=== PATIENT | female | born 1985 | race Caucasian/White ===

== ENCOUNTER 2018-03-02 18:39 | Emergency (ER) | payer SELFPAY ==
[2018-03-02] MEDS ORDERED: NACL 0.9% 1000 ML 1,000 ML IV ONE (18:46)
[2018-03-02 19:03] LABS: Hematocrit 38.7 % (30.3-42.9); Hemoglobin 13.3 gm/dl (10.1-14.3); Mean Corpuscular HGB Conc 34 % (30-34); Mean Corpuscular Hemoglobin 33 pg (28-32); Mean Corpuscular Volume 97 fl (79-97); Platelet Count 138 K/mm3 (140-440); Red Cell Distribution Width 13.2 % (13.2-15.2)
[2018-03-02 19:26] LABS: Alanine Aminotransferase 13 units/L (7-56); Albumin 4.7 g/dL (3.9-5); BUN/Creatinine Ratio 17; Blood Urea Nitrogen 10 mg/dL (7-17); Calcium 9.5 mg/dL (8.4-10.2); Hemolysis Index 5
[2018-03-02 19:57] LABS: Basophils % (Manual) 0 % (0.0-1.8); Eosinophils % (Manual) 0 % (0.0-4.3); Total Cells Counted 100
[2018-03-02 19:58] LABS: Large Platelets Few; Platelet Estimate Cons; RBC Morphology Normal
--- NOTE | 2018-03-02 20:34 | Emergency Department Report ---
HPI - General Chief Complaint: Abdominal Pain Time Seen by Provider: 03/02/18 20:22 - HPI HPI: Room 26 The patient is a 32-year-old female presenting with chief complaint of vaginal discharge and normal cramping. The patient states last week she noticed some dark yellow vaginal discharge but then it stopped. The patient states for the past week she's had intermittent lower abdominal cramping in addition to the return of dark yellow vaginal discharge. Patient denies dysuria or hematuria. Patient denies fever. The patient currently gives her discomfort as score of 6/ 10 Location: Pelvis Duration: [See above] Quality: Cramping Severity:6/10 Modifying factors: [see above] Context: [see above] Mode of transportation: The patient drove herself to the emergency department and there are no visitors present ED Past Medical Hx - Past Medical History Previous Medical History?: No - Surgical History Past Surgical History?: No - Family History Family history: no significant - Social History Smoking Status: Current Every Day Smoker (1/3 pack per day) Substance Use Type: Marijuana - Medications Home Medications: Home Medications Medication Instructions Recorded Confirmed Last Taken Type Ibuprofen [Motrin 800 MG tab] 800 mg PO Q8HR PRN #20 tablet 03/02/18 Unknown Rx Tramadol HCl [Ultram] 50 mg PO Q4-6H PRN #10 tablet 03/02/18 Unknown Rx ED Review of Systems ROS: Stated complaint: ADB PAIN Other details as noted in HPI Constitutional: denies: fever Eyes: denies: eye pain ENT: denies: throat pain Respiratory: no symptoms reported Cardiovascular: denies: chest pain Endocrine: no symptoms reported Gastrointestinal: abdominal pain Genitourinary: discharge. denies: hematuria Musculoskeletal: denies: back pain Neurological: denies: headache Physical Exam - Physical Exam Vital Signs: Vital Signs 03/02/18 18:43 Temperature 98.9 F Pulse Rate 97 H Respiratory 18 Rate Blood Pressure 118/81 O2 Sat by Pulse 99 Oximetry Physical Exam: GENERAL: The patient is well-developed well-nourished female lying on stretcher not appearing to be in acute distress. [] HEENT: Normocephalic. Atraumatic. Extraocular motions are intact. Patient has moist mucous membranes. NECK: Supple. Trachea midline CHEST/LUNGS: Clear to auscultation. There is no respiratory distress noted. HEART/CARDIOVASCULAR: Regular. There is no tachycardia. There is no gallop rub or murmur. ABDOMEN: Abdomen is soft, with mild discomfort to palpation along the lower abdomen. No rebound or guarding. Patient has normal bowel sounds. There is no abdominal distention. SKIN: There is no rash. There is no edema. There is no diaphoresis. NEURO: The patient is awake, alert, and oriented. The patient is cooperative. The patient has normal speech MUSCULOSKELETAL: There is no evidence of acute injury. PELVIC: Small amount of white discharge present in vault. ED Course Vital Signs 03/02/18 18:43 Temperature 98.9 F Pulse Rate 97 H Respiratory 18 Rate Blood Pressure 118/81 O2 Sat by Pulse 99 Oximetry ED Medical Decision Making - Lab Data Result diagrams: 03/02/18 18:54 03/02/18 18:54 Laboratory Tests 03/02/18 03/02/18 03/02/18 18:54 18:54 18:54 WBC 4.5 RBC 4.00 Hgb 13.3 Hct 38.7 MCV 97 MCH 33 H MCHC 34 RDW 13.2 Plt Count 138 L Greer % (Auto) Network Systems Consultant Eos % (Auto) Network Systems Consultant Add Manual Diff Complete Total Counted 100 Seg Neutrophils % Network Systems Consultant Seg Neuts % (Manual) 55.0 Band Neutrophils % 0 Lymphocytes % (Manual) 39.0 H Reactive Lymphs % (Man) 0 Monocytes % (Manual) 6.0 Eosinophils % (Manual) 0 Basophils % (Manual) 0 Metamyelocytes % 0 Myelocytes % 0 Promyelocytes % 0 Blast Cells % 0 Nucleated RBC % Not Reportable Seg Neutrophils # Man 2.5 Band Neutrophils # 0.0 Lymphocytes # (Manual) 1.8 Abs React Lymphs (Man) 0.0 Monocytes # (Manual) 0.3 Eosinophils # (Manual) 0.0 Basophils # (Manual) 0.0 Metamyelocytes # 0.0 Myelocytes # 0.0 Promyelocytes # 0.0 Blast Cells # 0.0 WBC Morphology Not Reportable Hypersegmented Neuts Not Reportable Hyposegmented Neuts Not Reportable Hypogranular Neuts Not Reportable Smudge Cells Not Reportable Toxic Granulation Not Reportable Toxic Vacuolation Not Reportable Dohle Bodies Not Reportable Pelger-Huet Anomaly Not Reportable Wolf Rods Not Reportable Platelet Estimate Cons Clumped Platelets Not Reportable Plt Clumps, EDTA Not Reportable Large Platelets Few Giant Platelets Not Reportable Platelet Satelliting Not Reportable Plt Morphology Comment Not Reportable RBC Morphology Normal Dimorphic RBCs Not Reportable Polychromasia Not Reportable Hypochromasia Not Reportable Poikilocytosis Not Reportable Anisocytosis Not Reportable Microcytosis Not Reportable Macrocytosis Not Reportable Spherocytes Not Reportable Pappenheimer Bodies Not Reportable Sickle Cells Not Reportable Target Cells Not Reportable Tear Drop Cells Not Reportable Ovalocytes Not Reportable Helmet Cells Not Reportable Moe-[place] Bodies Not Reportable [place] Rings Not Reportable [place] Cells Not Reportable Bite Cells Not Reportable Crenated Cell Not Reportable Elliptocytes Not Reportable Acanthocytes (Spur) Not Reportable Rouleaux Not Reportable Hemoglobin C Crystals Not Reportable Schistocytes Not Reportable Malaria parasites Not Reportable Dax Bodies Not Reportable Hem Pathologist Commnt No Sodium 140 Potassium 3.5 L Chloride 103.8 Carbon Dioxide 23 Anion Gap 17 BUN 10 Creatinine 0.6 L Estimated GFR > 60 BUN/Creatinine Ratio 17 Glucose 89 Calcium 9.5 Total Bilirubin 0.60 AST 16 ALT 13 Alkaline Phosphatase 55 Total Protein 7.2 Albumin 4.7 Albumin/Globulin Ratio 1.9 HCG, Qual Negative Urine Color Urine Turbidity Urine pH Ur Specific [place] Urine Protein Urine Glucose (UA) Urine Ketones Urine Blood Urine Nitrite Urine Bilirubin Urine Urobilinogen Ur Leukocyte Esterase Urine WBC (Auto) Urine RBC (Auto) U Epithel Cells (Auto) Urine Mucus 03/02/18 19:41 WBC RBC Hgb Hct MCV MCH MCHC RDW Plt Count [place] % (Auto) Eos % (Auto) Add Manual Diff Total Counted Seg Neutrophils % Seg Neuts % (Manual) Band Neutrophils % Lymphocytes % (Manual) Reactive Lymphs % (Man) Monocytes % (Manual) Eosinophils % (Manual) Basophils % (Manual) Metamyelocytes % Myelocytes % Promyelocytes % Blast Cells % Nucleated RBC % Seg Neutrophils # Man Band Neutrophils # Lymphocytes # (Manual) Abs React Lymphs (Man) Monocytes # (Manual) Eosinophils # (Manual) Basophils # (Manual) Metamyelocytes # Myelocytes # Promyelocytes # Blast Cells # WBC Morphology Hypersegmented Neuts Hyposegmented Neuts Hypogranular Neuts Smudge Cells Toxic Granulation Toxic Vacuolation Dohle Bodies Pelger-Huet Anomaly Wolf Rods Platelet Estimate Clumped Platelets Plt Clumps, EDTA Large Platelets Giant Platelets Platelet Satelliting Plt Morphology Comment RBC Morphology Dimorphic RBCs Polychromasia Hypochromasia Poikilocytosis Anisocytosis Microcytosis Macrocytosis Spherocytes Pappenheimer Bodies Sickle Cells Target Cells Tear Drop Cells Ovalocytes Helmet Cells Moe-Crossgate Bodies [place] Rings Javier Cells Bite Cells Crenated Cell Elliptocytes Acanthocytes (Spur) Rouleaux Hemoglobin C Crystals Schistocytes Malaria parasites Dax Bodies Hem Pathologist Commnt Sodium Potassium Chloride Carbon Dioxide Anion Gap BUN Creatinine Estimated GFR BUN/Creatinine Ratio Glucose Calcium Total Bilirubin AST ALT Alkaline Phosphatase Total Protein Albumin Albumin/Globulin Ratio HCG, Qual Urine Color Yellow Urine Turbidity Slightly-cloudy Urine pH 6.0 Ur Specific [place] 1.013 Urine Protein <15 mg/dl Urine Glucose (UA) Neg Urine Ketones Neg Urine Blood Neg Urine Nitrite Neg Urine Bilirubin Neg Urine Urobilinogen < 2.0 Ur Leukocyte Esterase Neg Urine WBC (Auto) 2.0 Urine RBC (Auto) 1.0 U Epithel Cells (Auto) 5.0 Urine Mucus Few - Differential Diagnosis vaginitis, bacterial vaginosis, urethritis, UTI Critical care attestation.: If time is entered above; I have spent that time in minutes in the direct care of this critically ill patient, excluding procedure time. ED Disposition Clinical Impression: Vaginal discharge Disposition: TO HOME OR SELFCARE Is pt being admited?: No Does the pt Need Aspirin: No Condition: Stable Instructions: Abdominal Pain (ED) Additional Instructions: Return to the emergency department immediately should you develop worsening symptoms, fever, inability to tolerate food or liquid or any other concerns. Prescriptions: Ibuprofen [Motrin 800 MG tab] 800 mg PO Q8HR PRN #20 tablet PRN Reason: Pain, Moderate (4-6) Tramadol HCl [Ultram] 50 mg PO Q4-6H PRN #10 tablet PRN Reason: Pain , Severe (7-10) Referrals: [facility] [Outside] - 3-5 Days Time of Disposition: 22:18
[2018-03-02] MEDS ORDERED: MOTRIN PO ONE (20:36)
[2018-03-02] MEDS ORDERED: ROCEPHIN IM ONE (21:05)
[2018-03-02] MEDS ORDERED: ZITHROMAX PO ONE ×2 (21:05→22:00)
[2018-03-02] MEDS ORDERED: XYLOCAINE 1% MPF 5 mL INFILTRATI ONE (21:05)
[2018-03-02 22:06] LABS: Bilirubin,Urine NEG (Negative); Blood,Urine NEG (Negative); Color,Urine Yellow (Yellow); Mucus,Urine FEW /HPF; Protein,Urine <15 mg/dL mg/dL (Negative); Urobilinogen,Urine < 2.0 mg/dL (<2.0)
[2018-03-02 22:35] VITALS: BP 121/85
== END 2018-03-02 22:35 | disposition home or self-care (01) ==
LOC: ED 18:39
DX: N89.8 Other specified noninflammatory disorders of vagina (principal); R10.2 Pelvic and perineal pain; F17.210 Nicotine dependence, cigarettes, uncomplicated; F12.10 Cannabis abuse, uncomplicated
CPT/HCPCS: 36415; 80053; 81001; 84703; 85007; 85025; 87210; 87591; 96372; 99284; J0696

== ENCOUNTER 2019-01-28 03:20 | Emergency (ER) | payer MEDICAID ==
[2019-01-28 03:32] VITALS: BP 126/87
[2019-01-28 04:51] LABS: Basophils % (Auto) 0.5 % (0.0-1.8); Eosinophils % (Auto) 0.8 % (0.0-4.3); Hematocrit 30.8 % (30.3-42.9); Hemoglobin 10.4 gm/dl (10.1-14.3); Lymphocytes # (Auto) 1.4 K/mm3 (1.2-5.4); Lymphocytes % (Auto) 33.2 % (13.4-35.0); Mean Corpuscular HGB Conc 34 % (30-34); Mean Corpuscular Hemoglobin 33 pg (28-32); Mean Corpuscular Volume 98 fl (79-97); Monocytes # (Auto) 0.4 K/mm3 (0.0-0.8); Monocytes % (Auto) 9.5 % (0.0-7.3); Platelet Count 185 K/mm3 (140-440); Red Blood Count 3.15 M/mm3 (3.65-5.03); Red Cell Distribution Width 13.7 % (13.2-15.2)
--- NOTE | 2019-01-28 05:02 | Emergency Department Report ---
ED Female HPI - General Chief complaint: Vaginal Bleeding Stated complaint: HEAVY VAGINAL BLEEDING Time Seen by Provider: 01/28/19 04:49 Source: patient Mode of arrival: Ambulatory Limitations: No Limitations - History of Present Illness Complaint: vaginal bleeding Location: suprapubic Radiation: non-radiating Severity: mild Quality: dull Consistency: constant Improves with: none Worsens with: none Are you Now?: No Associated Symptoms: vaginal bleeding (heavy vaginal bleeding starting this morning with few clots. Denies . no fever). denies: abdominal pain, nausea/vomiting, loss of appetite, hematuria, shortness of breath, syncope, weakness - Related Data Sexually active: Yes Previous Rx's Medication Instructions Recorded Last Taken Type Ibuprofen [Motrin 800 MG tab] 800 mg PO Q8HR PRN #20 tablet 03/02/18 Unknown Rx Tramadol HCl [Ultram] 50 mg PO Q4-6H PRN #10 tablet 03/02/18 Unknown Rx Cephalexin [Keflex] 500 mg PO BID 7 Days #14 capsule 09/28/18 Unknown Rx Ibuprofen [Motrin 600 MG tab] 600 mg PO Q8H #15 tablet 09/28/18 Unknown Rx Chlorhexidine Gluconate [Hibiclens] 5 ml TP BID #240 ml 09/30/18 Unknown Rx Ketorolac [Toradol] 10 mg PO Q6H PRN #10 tablet 01/28/19 Unknown Rx Allergies Allergy/AdvReac Type Severity Reaction Status Date / Time No Known Allergies Allergy Verified 03/02/18 18:43 ED Review of Systems ROS: Stated complaint: HEAVY VAGINAL BLEEDING Other details as noted in HPI Comment: All other systems reviewed and negative ED Past Medical Hx - Past Medical History Previous Medical History?: No - Surgical History Past Surgical History?: No - Social History Smoking Status: Current Every Day Smoker Substance Use Type: Marijuana - Medications Home Medications: Home Medications Medication Instructions Recorded Confirmed Last Taken Type Ibuprofen [Motrin 800 MG tab] 800 mg PO Q8HR PRN #20 tablet 03/02/18 Unknown Rx Tramadol HCl [Ultram] 50 mg PO Q4-6H PRN #10 tablet 03/02/18 Unknown Rx Cephalexin [Keflex] 500 mg PO BID 7 Days #14 capsule 09/28/18 Unknown Rx Ibuprofen [Motrin 600 MG tab] 600 mg PO Q8H #15 tablet 09/28/18 Unknown Rx Chlorhexidine Gluconate [Hibiclens] 5 ml TP BID #240 ml 09/30/18 Unknown Rx Ketorolac [Toradol] 10 mg PO Q6H PRN #10 tablet 01/28/19 Unknown Rx ED Physical Exam - General Limitations: No Limitations General appearance: alert, in no apparent distress - Head Head exam: Present: atraumatic, normocephalic - Eye Eye exam: Present: normal appearance, PERRL Pupils: Present: normal accommodation - ENT ENT exam: Present: normal exam, mucous membranes moist - Neck Neck exam: Present: normal inspection - Respiratory Respiratory exam: Present: normal lung sounds bilaterally. Absent: respiratory distress, wheezes, rales, rhonchi - Cardiovascular Cardiovascular Exam: Present: regular rate, normal rhythm. Absent: systolic murmur, diastolic murmur, rubs, gallop - GI/Abdominal GI/Abdominal exam: Present: soft, normal bowel sounds - External exam: Present: normal external exam Speculum exam: Present: vaginal bleeding Bi-manual exam: Present: uterine tenderness - Extremities Exam Extremities exam: Present: normal inspection - Back Exam Back exam: Present: normal inspection - Neurological Exam Neurological exam: Present: alert, oriented X3, CN II-XII intact - Psychiatric Psychiatric exam: Present: normal affect, normal mood - Skin Skin exam: Present: warm, dry, intact, normal color. Absent: rash ED Course Vital Signs 01/28/19 03:31 Temperature 98.4 F Pulse Rate 83 Respiratory 18 Rate Blood Pressure 126/87 [Left] O2 Sat by Pulse 100 Oximetry ED Medical Decision Making - Lab Data Result diagrams: 01/28/19 04:05 - Radiology Data Radiology results: report reviewed (ultrasound report showed adnexal mass) - Medical Decision Making 33-year-old female with heavy vaginal bleeding near the time of her normal mens es associated with some mild pain white blood cell counts normal labs for the most part normal. Ultrasound does reveal a adnexal tubular structure that could represent/sepsis. Patient is nontoxic. She did about follow-up this cystic/left structure of the abscess with [employer] [employer] [facility]. Pain is minimal, if bleeding continues beyond proximal 5-7 days. Lacerated evaluated for possible medical intervention Critical care attestation.: If time is entered above; I have spent that time in minutes in the direct care of this critically ill patient, excluding procedure time. ED Disposition Clinical Impression: Vaginal bleeding, Pelvic cramping, Adnexal mass, test negative Disposition: TO HOME OR SELFCARE Is pt being admited?: No Does the pt Need Aspirin: No Condition: Stable Instructions: Menstruation (ED) Prescriptions: Ketorolac [Toradol] 10 mg PO Q6H PRN #10 tablet PRN Reason: Pain Referrals: [facility] MD VINNY [Primary Care Provider] - 3-5 Days [facility] [Provider Group] - 3-5 Days
[2019-01-28 05:11] LABS: BUN/Creatinine Ratio 20; Blood Urea Nitrogen 14 mg/dL (7-17); Calcium 8.6 mg/dL (8.4-10.2); Hemolysis Index 11
--- NOTE | 2019-01-28 06:52 | Ultrasound Report ---
ULTRASOUND PELVIS INDICATION: vaginal bleeding and cramping. TECHNIQUE: Transabdominal and Transvaginal. Duplex Color Doppler used: Yes. COMPARISON: None available FINDINGS: Uterus: Present. Size: 12.4 x 5.5 x 6.3 cm. Endometrial complex: Normal measuring 0.8 cm. Mass lesions: None. Additional findings: None. Ovaries: Not clearly seen. Complex tubular structures are seen in the expected locations of the ovari es with internal color flow. Urinary Bladder: No significant abnormality. Free Fluid: Moderate amount. Additional Findings: None. IMPRESSION: 1. Nonvisualization of normal appearing ovaries with complex bilateral adnexal tubular structures lit t could represent tubo-ovarian abscesses. Please correlate with the clinical findings. 2. Moderate amount of free fluid. Signer Name: Nawaf Peres MD Signed: 01/28/2019 6:48 AM Workstation Name: [id number]
== END 2019-01-28 07:44 | disposition home or self-care (01) ==
LOC: ED 03:20
DX: R19.09 Other intra-abdominal and pelvic swelling, mass and lump (principal); R10.2 Pelvic and perineal pain; N93.9 Abnormal uterine and vaginal bleeding, unspecified; F17.200 Nicotine dependence, unspecified, uncomplicated; F12.90 Cannabis use, unspecified, uncomplicated; Z79.899 Other long term (current) drug therapy
CPT/HCPCS: 36415; 76830; 76856; 80048; 84703; 85025; 99284

== ENCOUNTER 2019-02-20 11:08 | Emergency (ER) | payer MEDICAID ==
[2019-02-20 11:15] VITALS: BP 105/63
--- NOTE | 2019-02-20 11:15 | Event Note ---
ED Screening Note ED Screening Note: pt presents with left shoulder pain states that a client fell onto her left shoulder last week states pain worse with movement and lifting her arm never injured before no PMHx no allergies to meds LNMP: january 27 This initial assessment/diagnostic orders/clinical plan/treatment(s) is/are subject to change based on patients health status, clinical progression and re- assessment by fellow clinical providers in the ED. Further treatment and workup at subsequent clinical providers discretion. Patient/guardian urged not to elope from the ED as their condition may be serious if not clinically assessed and managed. Initial orders include: XR of the left shoulder
[2019-02-20 12:24] LABS: HCG Qualitative,Urine Negative (Negative)
--- NOTE | 2019-02-20 13:14 | XRay Report ---
Left shoulder 3 views 1245 INDICATION: Trauma one week ago, left shoulder pain No fractures are seen. No significant arthritic changes are noted. The distal clavicle is mildly elev ated relative to the acromion though this can be a normal variant. Clinical attention to the acromial clavicular joint is suggested however. Signer Name: Gary Lee MD Signed: 02/20/2019 1:09 PM Workstation Name: [id number]
[2019-02-20] MEDS ORDERED: IBUPROFEN PO ONE (14:20)
--- NOTE | 2019-02-20 14:27 | Emergency Department Report ---
ED Upper Extremity Inj HPI - General Chief Complaint: Shoulder Injury Stated Complaint: CHEST PAIN Time Seen by Provider: 02/20/19 11:13 Source: patient Mode of arrival: Ambulatory Limitations: No Limitations - History of Present Illness Initial Comments: This is a 33-year-old female nontoxic, well nourished in appearance, no acute signs of distress presents to the ED with c/o of left shoulder pain x1 week. Patient stated that a client fell on her. Patient denies any other trauma. Patient denies any numbness, tingling, fever, chills, nausea, vomiting, chest pain, shortness of breath, headache, stiff neck. Patient denies any joint swelling or joint redness. Patient denies decreased range of motion. Patient denies any allergies or significant past medical history. MD Complaint: Injury to:: left, shoulder -: week(s) (1) Other Extremity Injury: Shoulder: Left Other Injuries: none Severity scale (0 -10): 8 Improves With: immobilization Worsens With: movement of extremity Associated Symptoms: denies other symptoms. denies: weakness, numbness, neck pain, suspects foreign body, nausea/vomiting, heard/felt popping sensat - Related Data Previous Rx's Medication Instructions Recorded Last Taken Type Ibuprofen [Motrin 800 MG tab] 800 mg PO Q8HR PRN #20 tablet 03/02/18 Unknown Rx Tramadol HCl [Ultram] 50 mg PO Q4-6H PRN #10 tablet 03/02/18 Unknown Rx Cephalexin [Keflex] 500 mg PO BID 7 Days #14 capsule 09/28/18 Unknown Rx Ibuprofen [Motrin 600 MG tab] 600 mg PO Q8H #15 tablet 09/28/18 Unknown Rx Chlorhexidine Gluconate [Hibiclens] 5 ml TP BID #240 ml 09/30/18 Unknown Rx Ketorolac [Toradol] 10 mg PO Q6H PRN #10 tablet 01/28/19 Unknown Rx Acetaminophen/Codeine [Tylenol 1 tab PO Q6H PRN #12 tab 02/20/19 Unknown Rx /Codeine # 3 tab] Ibuprofen [Motrin] 600 mg PO Q8H PRN #20 tablet 02/20/19 Unknown Rx Allergies Allergy/AdvReac Type Severity Reaction Status Date / Time No Known Allergies Allergy Verified 03/02/18 18:43 ED Review of Systems ROS: Stated complaint: CHEST PAIN Other details as noted in HPI Constitutional: denies: chills, fever Eyes: denies: eye pain, eye discharge, vision change ENT: denies: ear pain, throat pain Respiratory: denies: cough, shortness of breath, wheezing Cardiovascular: denies: chest pain, palpitations Endocrine: no symptoms reported Gastrointestinal: denies: abdominal pain, nausea, diarrhea Genitourinary: denies: urgency, dysuria, discharge Musculoskeletal: arthralgia. denies: back pain, joint swelling Skin: denies: rash, lesions Neurological: denies: headache, weakness, paresthesias Psychiatric: denies: anxiety, depression Hematological/Lymphatic: denies: easy bleeding, easy bruising ED Past Medical Hx - Past Medical History Previous Medical History?: No - Surgical History Past Surgical History?: No - Social History Smoking Status: Current Some Day Smoker Substance Use Type: Marijuana - Medications Home Medications: Home Medications Medication Instructions Recorded Confirmed Last Taken Type Ibuprofen [Motrin 800 MG tab] 800 mg PO Q8HR PRN #20 tablet 03/02/18 Unknown Rx Tramadol HCl [Ultram] 50 mg PO Q4-6H PRN #10 tablet 03/02/18 Unknown Rx Cephalexin [Keflex] 500 mg PO BID 7 Days #14 capsule 09/28/18 Unknown Rx Ibuprofen [Motrin 600 MG tab] 600 mg PO Q8H #15 tablet 09/28/18 Unknown Rx Chlorhexidine Gluconate [Hibiclens] 5 ml TP BID #240 ml 09/30/18 Unknown Rx Ketorolac [Toradol] 10 mg PO Q6H PRN #10 tablet 01/28/19 Unknown Rx Acetaminophen/Codeine [Tylenol 1 tab PO Q6H PRN #12 tab 02/20/19 Unknown Rx /Codeine # 3 tab] Ibuprofen [Motrin] 600 mg PO Q8H PRN #20 tablet 02/20/19 Unknown Rx ED Physical Exam - General Limitations: No Limitations General appearance: alert, in no apparent distress - Head Head exam: Present: atraumatic, normocephalic - Neck Neck exam: Present: normal inspection, full ROM. Absent: tenderness, meningismus, lymphadenopathy - Respiratory Respiratory exam: Present: normal lung sounds bilaterally. Absent: respiratory distress, wheezes, rales, rhonchi, stridor, chest wall tenderness, accessory muscle use, decreased breath sounds, prolonged expiratory - Cardiovascular Cardiovascular Exam: Present: regular rate, normal rhythm, normal heart sounds. Absent: bradycardia, tachycardia, irregular rhythm, systolic murmur, diastolic murmur, rubs, gallop - Extremities Exam Extremities exam: Present: normal inspection, full ROM, tenderness, normal capillary refill. Absent: joint swelling, calf tenderness - Expanded Upper Extremity Exam Left General: Present: normal inspection Shoulder Exam: Present: normal inspection, full ROM, tenderness. Absent: swelling, abrasion, laceration, ecchymosis, deformity, crepidus, dislocation, erythema, tenderness over AC joint Upper Arm exam: Present: normal inspection, full ROM. Absent: tenderness, swelling Elbow exam: Present: normal inspection, full ROM. Absent: tenderness, swelling Forearm Wrist exam: Present: normal inspection, full ROM. Absent: tenderness, swelling Hand Wrist exam: Present: normal inspection, full ROM. Absent: tenderness, swelling Vascular: Present: vascular compromise, normal capillary refill - Back Exam Back exam: Present: normal inspection, full ROM. Absent: tenderness, CVA tenderness (R), CVA tenderness (L), muscle spasm, paraspinal tenderness, vertebral tenderness, rash noted - Neurological Exam Neurological exam: Present: alert, oriented X3, normal gait - Psychiatric Psychiatric exam: Present: normal affect, normal mood - Skin Skin exam: Present: warm, dry, intact, normal color. Absent: rash ED Course Vital Signs 02/20/19 11:13 Temperature 98.6 F Pulse Rate 89 Respiratory 16 Rate Blood Pressure 105/63 [Left] O2 Sat by Pulse 98 Oximetry - Reevaluation(s) Reevaluation #1: 02/20/19 14:27 Patient is speaking in full sentences with no signs of distress noted. ED Medical Decision Making - Medical Decision Making This is a 33-year-old female that presents with left shoulder strain. Patient is stable and was examined by me. I referred patient to an orthopedic doctor for further evaluation for possible MRI. X-ray has been obtained and dictated by the radiologist. Patient is notified of the x-ray report with noted by the patient. Patient does have normal gait with no tenderness and no joint swelling. No ecchymosis. no joint redness or swelling. Not warm to touch. No signs of cellulites present. Patient received a shoulder sling. Patient was instructed to RICE therapy. Patient received Motrin for pain. Patient is discharged with Motrin. At time of discharge, the patient does not seem toxic or ill in appearance. No acute signs of distress noted. Patient agrees to discharge treatment plan of care. No further questions noted by the patient. Critical care attestation.: If time is entered above; I have spent that time in minutes in the direct care of this critically ill patient, excluding procedure time. ED Disposition Clinical Impression: Left shoulder strain Qualifiers: Encounter type: initial encounter Qualified Code(s): S46.912A - Strain of unspecified muscle, fascia and tendon at shoulder and upper arm level, left arm, initial encounter Disposition: TO HOME OR SELFCARE Is pt being admited?: No Does the pt Need Aspirin: No Condition: Stable Instructions: RICE Therapy (ED), Acetaminophen/Codeine (By mouth) Additional Instructions: Follow-up with a orthopedic doctor in 3-5 days or if symptoms worsen and continue return to emergency room as soon as possible. Prescriptions: Ibuprofen [Motrin] 600 mg PO Q8H PRN #20 tablet PRN Reason: Pain Acetaminophen/Codeine [Tylenol /Codeine # 3 tab] 1 tab PO Q6H PRN #12 tab PRN Reason: Pain , Severe (7-10) Referrals: JULITA DODGE MD [Primary Care Provider] - 3-5 Days PRIMARY MD RICHA [Referring] - 3-5 Days VIRA ALDRICH MD [Staff Physician] - 3-[address] [facility] [Outside] - 3-5 Days [facility] [Outside] - 3-5 Days Forms: Work/School Release Form(ED)
== END 2019-02-20 14:39 | disposition home or self-care (01) ==
LOC: ED 11:08
DX: S46.912A Strain of unspecified muscle, fascia and tendon at shoulder and upper arm level, left arm, initial encounter (principal); F17.200 Nicotine dependence, unspecified, uncomplicated; F12.90 Cannabis use, unspecified, uncomplicated; Z79.899 Other long term (current) drug therapy; W51.XXXA Accidental striking against or bumped into by another person, initial encounter; Y93.89 Activity, other specified; Y92.89 Other specified places as the place of occurrence of the external cause; Y99.8 Other external cause status
CPT/HCPCS: 81025; 99284

== ENCOUNTER 2020-06-08 21:47 | Emergency (ER) | payer MEDICAID ==
[2020-06-08 22:35] VITALS: BP 112/66
[2020-06-08] MEDS ORDERED: NEOMY 3.5 MG/BACIT 400 UNITS/POLY B 5000 UNITS/GM OINT PACKET TP STA (22:35)
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
== END 2020-06-08 23:22 | disposition left against medical advice (07) ==
LOC: ED 21:47
DX: M79.605 Pain in left leg (principal); Z53.21 Procedure and treatment not carried out due to patient leaving prior to being seen by health care provider

== ENCOUNTER 2021-01-13 16:33 | Outpatient (CLI) | payer MEDICAID ==
[2021-01-13 19:32] VITALS: BP 110/57
== END 2021-01-13 19:55 | disposition home or self-care (01) ==
LOC: TRG 16:33 → APU 16:35 → TRG 19:55
DX: Z34.92 Encounter for supervision of normal pregnancy, unspecified, second trimester (principal); Z3A.21 21 weeks gestation of pregnancy
CPT/HCPCS: 59025

== ENCOUNTER 2021-03-20 19:43 | Emergency (ER) | payer OTHER, MEDICAID ==
[2021-03-20 20:42] VITALS: BP 103/52
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
== END 2021-03-21 02:23 | disposition home or self-care (01) ==
LOC: ED 19:43
DX: S63.501A Unspecified sprain of right wrist, initial encounter (principal); S20.219A Contusion of unspecified front wall of thorax, initial encounter; Z79.899 Other long term (current) drug therapy; V49.49XA Driver injured in collision with other motor vehicles in traffic accident, initial encounter; Y92.410 Unspecified street and highway as the place of occurrence of the external cause; Y93.89 Activity, other specified; Y99.8 Other external cause status
CPT/HCPCS: 71046; 76805; 76816

== ENCOUNTER 2021-04-07 15:22 | Outpatient (CLI) | payer MEDICAID ==
[2021-04-07 15:49] VITALS: BP 99/56
[2021-04-07] MEDS ORDERED: LACTATED RINGERS 500 ML IV ONE (15:49)
[2021-04-07] MEDS ORDERED: LACTATED RINGERS 1,000 ML IV ONE (15:54)
--- NOTE | 2021-04-07 16:50 | Ultrasound Report ---
ULTRASOUND OBSTETRIC LIMITED ULTRASOUND BIOPHYSICAL PROFILE INDICATION / CLINICAL INFORMATION: pain. Clinical Gestational Age (GA) in weeks, days: 33, 5 TECHNIQUE: Transabdominal. COMPARISON: None available. FINDINGS: BREATHING MOVEMENT = 2 GROSS BODY MOVEMENT = 2 TONE = 2 QUALITATIVE AMNIOTIC FLUID VOLUME = 2 TOTAL BIOPHYSICAL SCORE = 8/8 HEART RATE (beats per minute): 136 AMNIOTIC FLUID INDEX (cm) = 12.4 (normal = 7-24 cm) PRESENTATION: Cephalic. ADDITIONAL FINDINGS: None. IMPRESSION: 1. Biophysical Score = 8/8 2. presentation cephalic. 3. Normal amniotic fluid index. Signer Name: Danielito Lee MD Signed: 04/07/2021 4:45 PM Workstation Name: [id number]
== END 2021-04-07 16:52 | disposition home or self-care (01) ==
LOC: TRG 15:22 → APU 15:24 → TRG 16:52
DX: Z34.93 Encounter for supervision of normal pregnancy, unspecified, third trimester (principal); Z3A.33 33 weeks gestation of pregnancy
CPT/HCPCS: 59025; 76815; 76819